=== PATIENT | male | born 1975 | race Caucasian/White ===

== ENCOUNTER 2022-12-07 09:33 | Outpatient (CLI) | payer OTHER | END 2022-12-07 09:34 | disposition home or self-care (01) | LOC: CSHCP 09:33 | PROVIDERS: ATTEND Internal Medicine | DX: R91.8 Other nonspecific abnormal finding of lung field (principal); R94.2 Abnormal results of pulmonary function studies | CPT/HCPCS: 71250; 94060; 94726; 94729; 94760 ==

== ENCOUNTER 2023-02-26 08:55 | Day surgery (SDC) | payer OTHER ==
[2023-02-22 11:19] VITALS: BMI 17.7
[2023-02-26] MEDS ORDERED: PROPOFOL 40 ML ONE (10:51)
[2023-02-26] MEDS ORDERED: ePHEDrine Sulfate 50 MG/10 ML VIAL ONE (11:23)
== END 2023-02-26 12:12 | disposition home or self-care (01) ==
LOC: CSHSDC 08:55
PROVIDERS: ATTEND Internal Medicine Gastroenterology
PROC: 0DB58ZX Excision of Esophagus, Via Natural or Artificial Opening Endoscopic, Diagnostic (ICD-10-PCS; principal; 2023-02-26)
PROC: 0DJD8ZZ Inspection of Lower Intestinal Tract, Via Natural or Artificial Opening Endoscopic (ICD-10-PCS; 2023-02-26)
DX: K52.9 Noninfective gastroenteritis and colitis, unspecified (principal); K64.9 Unspecified hemorrhoids; K29.50 Unspecified chronic gastritis without bleeding; K31.A0 Gastric intestinal metaplasia, unspecified; K21.00 Gastro-esophageal reflux disease with esophagitis, without bleeding; K22.89 Other specified disease of esophagus; R63.4 Abnormal weight loss; E11.9 Type 2 diabetes mellitus without complications; M54.50 Low back pain, unspecified; Z86.14 Personal history of Methicillin resistant Staphylococcus aureus infection; Z86.19 Personal history of other infectious and parasitic diseases; F17.200 Nicotine dependence, unspecified, uncomplicated; Z79.899 Other long term (current) drug therapy; Z68.1 Body mass index [BMI] 19.9 or less, adult
CPT/HCPCS: 88305; J2704

== ENCOUNTER 2023-03-22 09:51 | Outpatient (CLI) | payer OTHER | END 2023-03-22 09:52 | disposition home or self-care (01) | LOC: CSHCT 09:51 | PROVIDERS: ATTEND Internal Medicine Gastroenterology | DX: R10.9 Unspecified abdominal pain (principal); R63.4 Abnormal weight loss; N42.9 Disorder of prostate, unspecified; N32.89 Other specified disorders of bladder | CPT/HCPCS: 74177 ==

== ENCOUNTER 2023-03-29 12:20 | Outpatient (CLI) | payer OTHER | END 2023-03-29 12:21 | disposition home or self-care (01) | LOC: CSHRAD 12:20 | PROVIDERS: ATTEND Preventive Medicine Occupational Medicine | DX: M54.42 Lumbago with sciatica, left side (principal); G89.29 Other chronic pain; M47.816 Spondylosis without myelopathy or radiculopathy, lumbar region | CPT/HCPCS: 72100 ==

== ENCOUNTER 2025-04-15 09:35 | Outpatient (CLI) | payer OTHER | END 2025-04-15 09:36 | disposition home or self-care (01) | LOC: CSHSLEEP 09:35 | PROVIDERS: ATTEND Internal Medicine | DX: G47.33 Obstructive sleep apnea (adult) (pediatric) (principal); G47.30 Sleep apnea, unspecified; F41.9 Anxiety disorder, unspecified; F32.A Depression, unspecified; G47.61 Periodic limb movement disorder; R09.02 Hypoxemia | CPT/HCPCS: 95810 ==

== ENCOUNTER 2025-06-29 17:01 | Observation (INO) | payer OTHER, MEDICAID ==
[2025-06-29] MEDS ORDERED: Ondansetron PF 4 MG/2 ML Vial IVP PRN (21:50)
[2025-06-29 22:23] VITALS: BMI 19.0
[2025-06-29] MEDS ORDERED: Dextrose 50% Abboject 50 ML SYRINGE SLOW IVP PRN (23:09)
[2025-06-29] MEDS ORDERED: Glucagon 1 MG/ML KIT IM PRN (23:09)
[2025-06-29] MEDS: FLU (Fluarix Triv) 25-26 (6MOS UP)/PF 45 MCG/0.5 ML Syringe IM ONE (23:48)
[2025-06-30 05:03] LABS: #Basophils 0.03 10x3/uL (0.0-0.2); #Eosinophils 0.17 10x3/uL (0.0-0.5); #Monocytes 0.98 10x3/uL (0.0-1.1); #Neutrophils 5.88 10x3/uL (1.5-8.4); %Basophils 0.3 % (0.0-2.0); %Eosinophils 1.6 % (0.0-6.0); %Lymphocytes 31.8 % (18.0-47.0); %Monocytes 9.4 % (0.0-10.0); %Neutrophils 56.5 % (40.0-75.0); Hematocrit 30.6 % (38.8-50.0); Hemoglobin 9.8 g/dL (13.5-17.5); Mean Corpuscular Hemoglobin 29.1 pg (27.0-33.0); Mean Corpuscular Volume 90.8 fL (81.2-95.1); Platelet Count 637 10x3/uL (150-450); Red Blood Cell (RBC) Count 3.37 10x6/uL (4.32-5.72); White Blood Cell (WBC) Count 10.41 10x3/uL (3.5-10.5)
[2025-06-30 05:19] LABS: Anion Gap 12 mmol/L (10-20); BUN (Urea Nitrogen) 19 mg/dL (8.9-20.6); Calc. Creatinine Clearance 57 mL/min (70-130); Calcium 9.4 mg/dL (7.8-10.44); Carbon Dioxide 30 mmol/L (22-29); Chloride 100 mmol/L (98-107); Potassium 4.0 mmol/L (3.5-5.1); Sodium 138 mmol/L (136-145)
[2025-06-30 05:22] LABS: Glucose 44 mg/dL (70-105)
[2025-06-30] MEDS ORDERED: Lantus 1000 UNITS/10 ML VIAL SC SCH (09:00)
[2025-06-30] MEDS: Gabapentin 300 MG CAP PO SCH (09:24)
[2025-06-30] MEDS: Pantoprazole 40 MG DR.TAB PO SCH (09:24)
[2025-06-30] MEDS: Enoxaparin 30 MG (0.3 mL) SYRINGE SC SCH (09:25)
[2025-06-30] MEDS: LevoFLOXacin 750 mg/D5W 750 MG in Premix 1 BAG IVPB SCH (21:31)
[2025-06-30] MEDS: Rosuvastatin 10 MG TAB PO SCH (21:35)
[2025-06-30] MEDS: Acetaminophen 325 MG TAB PO PRN (21:36)
[2025-07-01 08:34] VITALS: TEMP 98.8
[2025-07-01] MEDS: Lantus 1000 UNITS/10 ML VIAL SC SCH (08:36)
[2025-07-01] MEDS ORDERED: Lantus 1000 UNITS/10 ML VIAL SC SCH (09:00)
[2025-07-01 12:30] VITALS: BP 110/57
== END 2025-07-01 16:05 | disposition home or self-care (01) ==
LOC: INTOOBSV 21:34 → CSHTELE 21:34
PROVIDERS: ADMIT Family Medicine; ATTEND Family Medicine
DX: N39.0 Urinary tract infection, site not specified (principal); I10 Essential (primary) hypertension; I95.1 Orthostatic hypotension; E11.40 Type 2 diabetes mellitus with diabetic neuropathy, unspecified; E78.5 Hyperlipidemia, unspecified; F17.210 Nicotine dependence, cigarettes, uncomplicated; Z79.4 Long term (current) use of insulin; Z79.899 Other long term (current) drug therapy
CPT/HCPCS: 36415; 36416; 80048; 85025; 93005; 93010; 94760; 94762; 96372; 96374; G0378; J1650; J1815; J1956